=== PATIENT | male | born 1940 | race African-American/Black ===

== ENCOUNTER 2017-07-18 10:10 | Inpatient (IN) | payer OTHER ==
[2017-07-18 11:55] VITALS: BMI 21.5
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
[2017-07-18] MEDS ORDERED: MAGNESIUM HYDROX 2400MG/30ML ORAL SUSPENSION 30 ML CUP PO PRN (15:37)
[2017-07-18] MEDS ORDERED: MAG HYDROX/AL HYDROX/SIMETH 30 ML UNIT-DOSE CUP PO PRN (15:37)
[2017-07-18] MEDS ORDERED: MENTHOL/PHENOL 1 EACH UD MM PRN (15:37)
[2017-07-18] MEDS ORDERED: chlordiazePOXIDE HCL 25 MG CAPSULE PO PRN (15:37)
[2017-07-18] MEDS ORDERED: LOPERAMIDE HCL 2 MG CAPSULE PO PRN (15:37)
[2017-07-18] MEDS ORDERED: MAGNESIUM CITRATE 300 ML BOTTLE PO PRN (15:37)
[2017-07-18] MEDS ORDERED: P-EPHED 60MG/TRIPROLIDI 2.5MG TABLET PO PRN (15:37)
[2017-07-18] MEDS ORDERED: guaiFENesin/D-METHORPHAN HB 10 ML UNIT-DOSE CUPS PO PRN (15:37)
[2017-07-18] MEDS ORDERED: NICOTINE POLACRILEX 2 MG GUM BC PRN (15:37)
[2017-07-18] MEDS ORDERED: ALBUTEROL SO4 18 GM HFA INHALER IH PRN (15:40)
[2017-07-18] MEDS ORDERED: PHENYTOIN NA EXTENDED 100 MG CAPSULE (FP) PO SCH (15:45)
[2017-07-18] MEDS ORDERED: chlordiazePOXIDE HCL 25 MG CAPSULE PO ONE (16:00)
[2017-07-18] MEDS: chlordiazePOXIDE HCL 25 MG CAPSULE PO SCH ×2 (17:20→22:12)
[2017-07-18] MEDS: NICOTINE 21 MG/24 HOURS TOPICAL PATCH TD SCH (17:20)
[2017-07-18] MEDS: IBUPROFEN 400 MG TABLET (FP) PO PRN (19:50)
[2017-07-18] MEDS ORDERED: chlordiazePOXIDE HCL 25 MG CAPSULE ONE (21:20)
[2017-07-18] MEDS ORDERED: MELATONIN 5 MG TABLETS PO PRN (22:00)
[2017-07-18] MEDS: THIAMINE HCL 100 MG TABLET (FP) PO SCH (22:11)
[2017-07-18] MEDS: METHYL SALICYLATE/MENTHOL OINT 30 GM TUBE TP SCH (22:12)
[2017-07-19] MEDS: chlordiazePOXIDE HCL 25 MG CAPSULE PO SCH ×4 (05:47→22:13)
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
[2017-07-19] MEDS: PHENYTOIN NA EXTENDED 100 MG CAPSULE (FP) PO SCH (10:23)
[2017-07-19] MEDS: PRENATAL VITAMINS W/ FOLIC ACID TABLET (FP) PO SCH (10:23)
[2017-07-19] MEDS: METHYL SALICYLATE/MENTHOL OINT 30 GM TUBE TP SCH ×2 (10:24→22:14)
[2017-07-19] MEDS: NICOTINE 21 MG/24 HOURS TOPICAL PATCH TD SCH (10:24)
[2017-07-19 11:02] LABS: CHLORIDE 109 mmol/L (98-107); POTASSIUM 4.1 mmol/L (3.5-5.1); SODIUM 142 mmol/L (136-145)
[2017-07-19 12:01] LABS: ALK PHOS 89 U/L (45-117); ANION GAP 8 (8-16); BILIRUBIN,TOTAL 0.3 mg/dL (0.2-1.0); BLOOD UREA NITROGEN 15 mg/dL (7-18); CALCIUM 8.7 mg/dL (8.5-10.1); CO2 25 mmol/L (21-32); GLUCOSE,RANDOM 52 mg/dL (74-106); SGOT/AST 16 U/L (15-37); SGPT/ALT 22 U/L (12-78); TOT PROT 7.2 g/dl (6.4-8.2)
[2017-07-19] MEDS ORDERED: ONDANSETRON *ODT* 4 MG TABLET SL PRN (12:53)
--- NOTE | 2017-07-19 12:53 | PN ---
S CIWA - CIWA Score Nausea/Vomitin-Int. Nausea w/Dry Heave Muscle Tremors: 3 Anxiety: 4-Mod. Anxious/Guarded Agitation: 3 Paroxysmal Sweats: 1-Minimal Palms Moist Orientation: 0-Oriented Tacttile Disturbances: 0-None Auditory Disturbances: 0-None Visual Disturbances: 0-None Headache: 0-None Present CIWA-Ar Total Score: 15 BHS Progress Note (SOAP) Subjective: C/O ANXIETY,TREMORS,NAUSEA,IRRITABILITY,SWEATS,FATIGUE Objective: 07/19/17 12:52 Vital Signs 07/19/17 07/19/17 06:19 09:30 Temperature 96 F L 96.6 F L Pulse Rate 57 L 58 L Respiratory 16 16 Rate Blood Pressure 136/68 138/68 Laboratory Tests 07/19/17 07/19/17 07:30 07:30 Sodium 142 Potassium 4.1 Chloride 109 H Carbon Dioxide 25 Anion Gap 8 BUN 15 Creatinine 1.0 Creat Clearance w eGFR > 60 Random Glucose 52 L Calcium 8.7 Total Bilirubin 0.3 AST 16 ALT 22 Alkaline Phosphatase 89 Total Protein 7.2 Albumin 4.0 RPR Titer Nonreactive OTHER LABS PENDING Assessment: 07/19/17 12:53 WITHDRAWAL SX Plan: CONTINUE DETOX [facility]AN PRN
--- NOTE | 2017-07-19 14:00 | EKG ---
Test Reason : Blood Pressure : / mmHG Vent. Rate : 069 BPM Atrial Rate : 069 BPM P-R Int : 140 ms QRS Dur : 086 ms QT Int : 390 ms P-R-T Axes : 075 052 056 degrees QTc Int : 417 ms SINUS RHYTHM WITH PREMATURE ATRIAL COMPLEXES MODERATE VOLTAGE CRITERIA FOR LVH, MAY BE NORMAL VARIANT BORDERLINE ECG NO PREVIOUS ECGS AVAILABLE Confirmed by KEO EDWARDS, TE ([id number]) on 07/19/2017 1:59:44 PM Referred By: Confirmed By:TE CROWLEY MD
[2017-07-19] MEDS: ACETAMINOPHEN 325 MG TABLET (FP) PO PRN (17:39)
[2017-07-19] MEDS: THIAMINE HCL 100 MG TABLET (FP) PO SCH (22:13)
[2017-07-20] MEDS: chlordiazePOXIDE HCL 25 MG CAPSULE PO SCH (06:47)
[2017-07-20] MEDS ORDERED: diazePAM 5 MG TABLET PO PRN (09:47)
[2017-07-20 09:54] LABS: MEAN PLT VOLUME 9.3 fl (7.5-11.1)
[2017-07-20 09:57] LABS: HEMOGLOBIN 13.6 GM/dL (11.7-16.9); MCH 30.8 pg (25.7-33.7); MCHC 33.2 g/dl (32.0-35.9); MEAN CELL VOLUME 92.8 fl (80-96); PLATELET COUNT 233 K/MM3 (134-434); RBC 4.42 M/mm3 (4.00-5.60); RDW 13.8 % (11.9-15.9); WHITE BLOOD COUNT 7.6 K/mm3 (4.0-10.0)
[2017-07-20] MEDS ORDERED: diazePAM 5 MG TABLET PO SCH (10:00)
[2017-07-20] MEDS: PRENATAL VITAMINS W/ FOLIC ACID TABLET (FP) PO SCH (10:25)
[2017-07-20] MEDS: METHYL SALICYLATE/MENTHOL OINT 30 GM TUBE TP SCH ×2 (10:26→23:00)
[2017-07-20] MEDS: diazePAM 5 MG TABLET PO SCH ×2 (10:26→23:00)
[2017-07-20] MEDS: NICOTINE 21 MG/24 HOURS TOPICAL PATCH TD SCH (10:26)
[2017-07-20] MEDS: PHENYTOIN NA EXTENDED 100 MG CAPSULE (FP) PO SCH (10:26)
--- NOTE | 2017-07-20 11:45 | PN ---
S CIWA - CIWA Score Nausea/Vomitin-No Nausea/No Vomiting Muscle Tremors: 4-Moderate,w/Arms Extend Anxiety: 4-Mod. Anxious/Guarded Agitation: 4-Moderately Restless Paroxysmal Sweats: 1-Minimal Palms Moist Orientation: 0-Oriented Tacttile Disturbances: 0-None Auditory Disturbances: 0-None Visual Disturbances: 0-None Headache: 0-None Present CIWA-Ar Total Score: 13 BHS Progress Note (SOAP) Subjective: ANXIETY,SWEATS,TREMORS. PT IS OOB AMBULATING ON THE UNIT WITH NAD. PT C/O STOMACH UPSET WITH LIBRIUM DISPENSED.WILLING TO TAKE VALIUM INSTEAD. Objective: 07/20/17 11:44 Vital Signs Temperature 96.1 F L 07/20/17 09:26 Pulse Rate 77 07/20/17 09:26 Respiratory Rate 18 07/20/17 09:26 Blood Pressure 132/74 07/20/17 09:26 O2 Sat by Pulse Oximetry (%) Laboratory Tests 07/19/17 07/19/17 07/19/17 07:30 07:30 07:30 WBC RBC Hgb Hct MCV MCH MCHC RDW Plt Count MPV Sodium 142 Potassium 4.1 Chloride 109 H Carbon Dioxide 25 Anion Gap 8 BUN 15 Creatinine 1.0 Creat Clearance w eGFR > 60 Random Glucose 52 L Calcium 8.7 Total Bilirubin 0.3 AST 16 ALT 22 Alkaline Phosphatase 89 Total Protein 7.2 Albumin 4.0 Phenytoin < 2.5 L RPR Titer Nonreactive 07/20/17 07:00 WBC 7.6 RBC 4.42 Hgb 13.6 Hct 41.0 MCV 92.8 MCH 30.8 MCHC 33.2 RDW 13.8 Plt Count 233 MPV 9.3 Sodium Potassium Chloride Carbon Dioxide Anion Gap BUN Creatinine Creat Clearance w eGFR Random Glucose Calcium Total Bilirubin AST ALT Alkaline Phosphatase Total Protein Albumin Phenytoin RPR Titer Assessment: 07/20/17 11:44 WITHDRAWAL SX Plan: CONTINUE DETOX D/C LIBRIUM OREDERED VALIUM DETOX PROTOCOL INCREASE OPO FLUIDS
[2017-07-20 12:35] LABS: SICKLE CELL SCREEN NEGATIVE (NEGATIVE)
[2017-07-20] MEDS ORDERED: chlordiazePOXIDE 5 MG CAPSULE PO SCH (17:00)
[2017-07-20] MEDS: THIAMINE HCL 100 MG TABLET (FP) PO SCH (23:00)
[2017-07-21] MEDS: PHENYTOIN NA EXTENDED 100 MG CAPSULE (FP) PO SCH (07:48)
[2017-07-21] MEDS: PRENATAL VITAMINS W/ FOLIC ACID TABLET (FP) PO SCH (10:35)
[2017-07-21] MEDS: diazePAM 5 MG TABLET PO SCH ×2 (10:35→22:11)
[2017-07-21] MEDS: METHYL SALICYLATE/MENTHOL OINT 30 GM TUBE TP SCH ×2 (10:35→22:11)
[2017-07-21] MEDS: NICOTINE 21 MG/24 HOURS TOPICAL PATCH TD SCH (10:35)
--- NOTE | 2017-07-21 11:50 | PN ---
[facility] Progress Note (SOAP) Subjective: PT C/O CHRONIC NECK PAIN ON ROUNDS OF WHICH HE APPLIES ALONSO-MARTI AND REPORTS SOME RELIEF. ALERT O X 3. OOB AMBULATING ON UNIT. Objective: 07/21/17 11:49 Vital Signs 07/21/17 07/21/17 06:21 10:00 Temperature 96.7 F L 96.0 F L Pulse Rate 62 83 Respiratory 18 18 Rate Blood Pressure 136/70 97/60 Laboratory Last Values WBC 7.6 K/mm3 (4.0-10.0) 07/20/17 07:00 RBC 4.42 M/mm3 (4.00-5.60) 07/20/17 07:00 Hgb 13.6 GM/dL (11.7-16.9) 07/20/17 07:00 Hct 41.0 % (35.4-49) 07/20/17 07:00 MCV 92.8 fl (80-96) 07/20/17 07:00 MCH 30.8 pg (25.7-33.7) 07/20/17 07:00 MCHC 33.2 g/dl (32.0-35.9) 07/20/17 07:00 RDW 13.8 % (11.9-15.9) 07/20/17 07:00 Plt Count 233 K/MM3 (134-434) 07/20/17 07:00 MPV 9.3 fl (7.5-11.1) 07/20/17 07:00 Sickle Cell Screen Negative (NEGATIVE) 07/20/17 07:00 Sodium 142 mmol/L (136-145) 07/19/17 07:30 Potassium 4.1 mmol/L (3.5-5.1) 07/19/17 07:30 Chloride 109 mmol/L (98-107) H 07/19/17 07:30 Carbon Dioxide 25 mmol/L (21-32) 07/19/17 07:30 Anion Gap 8 (8-16) 07/19/17 07:30 BUN 15 mg/dL (7-18) 07/19/17 07:30 Creatinine 1.0 mg/dL (0.7-1.3) 07/19/17 07:30 Creat Clearance w eGFR > 60 (>60) 07/19/17 07:30 Random Glucose 52 mg/dL (74-106) L 07/19/17 07:30 Calcium 8.7 mg/dL (8.5-10.1) 07/19/17 07:30 Total Bilirubin 0.3 mg/dL (0.2-1.0) 07/19/17 07:30 AST 16 U/L (15-37) 07/19/17 07:30 ALT 22 U/L (12-78) 07/19/17 07:30 Alkaline Phosphatase 89 U/L (45-117) 07/19/17 07:30 Total Protein 7.2 g/dl (6.4-8.2) 07/19/17 07:30 Albumin 4.0 g/dl (3.4-5.0) 07/19/17 07:30 Phenytoin < 2.5 ug/ml (10.0-20.0) L 07/19/17 07:30 RPR Titer Nonreactive (NONREACTIVE) 07/19/17 07:30 Assessment: 07/21/17 11:50 WITHDRAWAL SX Plan: CONTINUE DETOX.
--- NOTE | 2017-07-21 11:59 | PN ---
S Progress Note Note: BUILDING MAINTENANCE REPAIRER WAS CALLED TO SEE PATIENT AGAIN FOR C/O ABDOMINAL PAIN. PT REPORTS LEFT INGUINAL AREA PAIN. REPORTS HX OF LEFT INGUINAL HERNIA AND ON/OFF PAIN BUT SAYS THIS IS SEVERE AND FEELS THERE IS SOMETHING IN THERE. PT HAS A HX OF RIGHT INGUINAL HERNIA REPAIR. PT ALSO HAS A HX OF HTN,ASTHMA,SEIZURE DISORDER,GERD. CURRENTLY DETOXING FROM ALCOHOL AND ON VALIUM REGIMEN. ALERT O X 3. ABDOMEN: SOFT WITH LEFT INGUINAL BULGE, PARTIAL REDUCIBILITY WITH PAIN ON PALPATION. BS+ PLAN:TRANSFER TO [facility] ER FOR EVALUATION AND TREATMENT VIA AMBULANCE. PT MAY RETURN TO COMPLETE DETOX IF MEDICALLY CLEARED AND STABLE. SPOKE TO ARTHUR BAILEY AT THE ER.
[2017-07-21] MEDS ORDERED: chlordiazePOXIDE HCL 10 MG CAPSULE PO SCH (17:00)
[2017-07-21] MEDS: THIAMINE HCL 100 MG TABLET (FP) PO SCH (22:11)
[2017-07-22] MEDS: PRENATAL VITAMINS W/ FOLIC ACID TABLET (FP) PO SCH (09:58)
[2017-07-22] MEDS: NICOTINE 21 MG/24 HOURS TOPICAL PATCH TD SCH (09:59)
[2017-07-22] MEDS: PHENYTOIN NA EXTENDED 100 MG CAPSULE (FP) PO SCH (09:59)
[2017-07-22] MEDS: METHYL SALICYLATE/MENTHOL OINT 30 GM TUBE TP SCH ×2 (09:59→22:19)
[2017-07-22] MEDS ORDERED: diazePAM 5 MG TABLET PO SCH (10:00)
--- NOTE | 2017-07-22 12:57 | PN ---
[facility] Progress Note Note: Patient returns from CXR at [facility] which was normal. Patient alert returned to floor.
--- NOTE | 2017-07-22 17:11 | PN ---
[facility] Progress Note (SOAP) Subjective: Anxious, Body Aches, Sweating. Patient reports that he "coughed up blood" X 1 last night in his room. Patient denies any other episodes of hemoptysis since that time. Objective: PATIENT A & O X 3, OBSERVED AMBULATING ON UNIT. NO ACUTE DISTRESS. LUNG SOUNDS AUSCULTATED CLEAR AND EQUAL BILATERALLY. PATIENT DENIES ANY KNOWN HISTORY OF RESPIRATORY DISEASE. 07/22/17 17:12 Vital Signs Temperature 96.2 F L 07/22/17 15:02 Pulse Rate 64 07/22/17 15:02 Respiratory Rate 18 07/22/17 15:02 Blood Pressure 170/78 07/22/17 15:02 O2 Sat by Pulse Oximetry (%) Laboratory Tests 07/19/17 07/19/17 07/19/17 07:30 07:30 07:30 WBC RBC Hgb Hct MCV MCH MCHC RDW Plt Count MPV Sickle Cell Screen Sodium 142 Potassium 4.1 Chloride 109 H Carbon Dioxide 25 Anion Gap 8 BUN 15 Creatinine 1.0 Creat Clearance w eGFR > 60 Random Glucose 52 L Calcium 8.7 Total Bilirubin 0.3 AST 16 ALT 22 Alkaline Phosphatase 89 Total Protein 7.2 Albumin 4.0 Phenytoin < 2.5 L RPR Titer Nonreactive 07/20/17 07:00 WBC 7.6 RBC 4.42 Hgb 13.6 Hct 41.0 MCV 92.8 MCH 30.8 MCHC 33.2 RDW 13.8 Plt Count 233 MPV 9.3 Sickle Cell Screen Negative Sodium Potassium Chloride Carbon Dioxide Anion Gap BUN Creatinine Creat Clearance w eGFR Random Glucose Calcium Total Bilirubin AST ALT Alkaline Phosphatase Total Protein Albumin Phenytoin RPR Titer LABS NOTED. 07/22/17 17:13 Assessment: 07/22/17 17:12 WITHDRAWAL SYMPTOMS. Plan: CONTINUE DETOX. CXR ORDERED AND DONE - RESULTS NOTED. PATIENT ADVISED TO IMMEDIATELY NOTIFY MEDICAL STAFF SHOULD HE EXPERIENCE ANY FURTHER EPISODES OF HEMOPTYSIS. PATIENT ADVISED TO FOLLOW-UP WITH TEST DEVELOPMENT ENGINEER AT [facility] ([facility] [place] AFTER DISCHARGE FROM DETOX FOR FURTHER EVALUATION FOR THIS MATTER.
[2017-07-22] MEDS: IBUPROFEN 400 MG TABLET (FP) PO PRN (19:54)
[2017-07-22 21:55] VITALS: PULSE 72
[2017-07-22] MEDS: THIAMINE HCL 100 MG TABLET (FP) PO SCH (22:19)
[2017-07-23 06:25] VITALS: BP 131/78; TEMP 96.1
[2017-07-23] MEDS: ACETAMINOPHEN 325 MG TABLET (FP) PO PRN (07:15)
[2017-07-23] MEDS: PHENYTOIN NA EXTENDED 100 MG CAPSULE (FP) PO SCH (07:26)
[2017-07-23 10:14] LABS: URINE APPEARANCE CLEAR; URINE BILIRUBIN NEGATIVE (<2.0 mg/dL); URINE COLOR LTYELLOW; URINE GLUCOSE (UA) NEGATIVE (NEGATIVE); URINE KETONE NEGATIVE (NEGATIVE); URINE LEUK ESTERASE NEGATIVE (NEGATIVE); URINE NITRITE NEGATIVE (NEGATIVE); URINE PROTEIN NEGATIVE (NEGATIVE); URINE UROBILINOGEN NEGATIVE mg/dL (0.2-1.0)
--- NOTE | 2017-07-23 15:41 | PN ---
[facility] Progress Note (SOAP) Subjective: DETOX COMPLETED. ALERT O X 3. NAD. DENIES ANY DISCOMFORT. Objective: 07/23/17 15:38 Vital Signs - 24 hr 07/22/17 07/22/17 07/23/17 17:25 21:55 00:30 Temperature 96.9 F L 96.6 F L Pulse Rate 73 72 Respiratory 16 18 16 Rate Blood Pressure 134/71 146/64 07/23/17 06:24 Temperature 96.1 F L Pulse Rate 72 Respiratory 16 Rate Blood Pressure 131/78 Laboratory Tests 07/19/17 07/19/17 07/19/17 07:30 07:30 07:30 WBC RBC Hgb Hct MCV MCH MCHC RDW Plt Count MPV Sickle Cell Screen Sodium 142 Potassium 4.1 Chloride 109 H Carbon Dioxide 25 Anion Gap 8 BUN 15 Creatinine 1.0 Creat Clearance w eGFR > 60 Random Glucose 52 L Calcium 8.7 Total Bilirubin 0.3 AST 16 ALT 22 Alkaline Phosphatase 89 Total Protein 7.2 Albumin 4.0 Urine Color Urine Appearance Urine pH Ur Specific [place] Urine Protein Urine Glucose (UA) Urine Ketones Urine Blood Urine Nitrite Urine Bilirubin Urine Urobilinogen Ur Leukocyte Esterase Phenytoin < 2.5 L RPR Titer Nonreactive 07/20/17 07/23/17 07:00 09:14 WBC 7.6 RBC 4.42 Hgb 13.6 Hct 41.0 MCV 92.8 MCH 30.8 MCHC 33.2 RDW 13.8 Plt Count 233 MPV 9.3 Sickle Cell Screen Negative Sodium Potassium Chloride Carbon Dioxide Anion Gap BUN Creatinine Creat Clearance w eGFR Random Glucose Calcium Total Bilirubin AST ALT Alkaline Phosphatase Total Protein Albumin Urine Color Ltyellow Urine Appearance Clear Urine pH 5.0 Ur Specific [place] 1.014 Urine Protein Negative Urine Glucose (UA) Negative Urine Ketones Negative Urine Blood Negative Urine Nitrite Negative Urine Bilirubin Negative Urine Urobilinogen Negative Ur Leukocyte Esterase Negative Phenytoin RPR Titer Assessment: 07/23/17 15:38 MEDICALLY STABLE Plan: D/C PT TODAY. PT REMINDED TO FOLLOW UP WITH PMD/SURGERY RE: LEFT INGUINAL HERNIA. ALL ER PAPERS/RECOMMENDATIONS GIVEN TO PT BY NURSE ON DISCHARGE.
--- NOTE | 2017-07-23 15:46 | DS ---
[facility] Detox Discharge Summary Admission Date: 07/18/17 Discharge Date: 07/23/17 - History Present History: Alcohol Dependence, Cocaine Dependence Additional Comments: DETOX COMPLETED. ALERT O X 3. PT WILL FOLLOW UP WITH HIS PCP AT [facility]. REMINDED PT TO FOLLOW UP WITH ER RECOMMENDATION RE: LEFT INGUINAL HERNIA REPAIR. Pertinent Past History: PLEASE SEE DX BELOW - Physical Exam Results Vital Signs: Vital Signs Temperature 96.1 F L 07/23/17 06:24 Pulse Rate 72 07/23/17 06:24 Respiratory Rate 16 07/23/17 06:24 Blood Pressure 131/78 07/23/17 06:24 O2 Sat by Pulse Oximetry (%) Pertinent Admission Physical Exam Findings: WITHDRAWAL SX Vital Signs - 24 hr 07/22/17 07/22/17 07/23/17 17:25 21:55 00:30 Temperature 96.9 F L 96.6 F L Pulse Rate 73 72 Respiratory 16 18 16 Rate Blood Pressure 134/71 146/64 07/23/17 06:24 Temperature 96.1 F L Pulse Rate 72 Respiratory 16 Rate Blood Pressure 131/78 Laboratory Tests 07/19/17 07/19/17 07/19/17 07:30 07:30 07:30 WBC RBC Hgb Hct MCV MCH MCHC RDW Plt Count MPV Sickle Cell Screen Sodium 142 Potassium 4.1 Chloride 109 H Carbon Dioxide 25 Anion Gap 8 BUN 15 Creatinine 1.0 Creat Clearance w eGFR > 60 Random Glucose 52 L Calcium 8.7 Total Bilirubin 0.3 AST 16 ALT 22 Alkaline Phosphatase 89 Total Protein 7.2 Albumin 4.0 Urine Color Urine Appearance Urine pH Ur Specific [place] Urine Protein Urine Glucose (UA) Urine Ketones Urine Blood Urine Nitrite Urine Bilirubin Urine Urobilinogen Ur Leukocyte Esterase Phenytoin < 2.5 L RPR Titer Nonreactive 07/20/17 07/23/17 07:00 09:14 WBC 7.6 RBC 4.42 Hgb 13.6 Hct 41.0 MCV 92.8 MCH 30.8 MCHC 33.2 RDW 13.8 Plt Count 233 MPV 9.3 Sickle Cell Screen Negative Sodium Potassium Chloride Carbon Dioxide Anion Gap BUN Creatinine Creat Clearance w eGFR Random Glucose Calcium Total Bilirubin AST ALT Alkaline Phosphatase Total Protein Albumin Urine Color Ltyellow Urine Appearance Clear Urine pH 5.0 Ur Specific [place] 1.014 Urine Protein Negative Urine Glucose (UA) Negative Urine Ketones Negative Urine Blood Negative Urine Nitrite Negative Urine Bilirubin Negative Urine Urobilinogen Negative Ur Leukocyte Esterase Negative Phenytoin RPR Titer - Treatment Hospital Course: Detox Protocol Followed, Detoxed Safely, Responded well, Discharged Condition Good - Medication Discharge Medications: Ambulatory Orders Albuterol Sulfate Inhaler - [Ventolin HFA Inhaler -] 2 puff IH Q4H PRN 07/18/17 Phenytoin Na Extended [Dilantin -] 100 mg PO DAILY 07/18/17 - Diagnosis (1) Alcohol dependence with uncomplicated withdrawal Status: Acute (2) Cocaine dependence, uncomplicated Status: Acute (3) Acid reflux Status: Chronic Qualifiers: Esophagitis presence: esophagitis presence not specified Qualified Code(s) : K21.9 - Gastro-esophageal reflux disease without esophagitis (4) Asthma Status: Chronic Qualifiers: Asthma severity: mild Asthma persistence: intermittent Asthma complication type: uncomplicated Qualified Code(s): J45.20 - Mild intermittent asthma, uncomplicated (5) Nicotine dependence Status: Chronic Qualifiers: Nicotine product type: cigarettes Substance use status: in withdrawal Qualified Code(s): F17.213 - Nicotine dependence, cigarettes, with withdrawal (6) Seizure disorder Status: Suspected (7) History of hypertension Status: Chronic - AMA Did Patient Leave Against Medical Advice: No
== END 2017-07-23 09:48 | disposition home or self-care (01) | DRG 897 ==
LOC: YASAS 10:10 → Y3N 14:54
PROVIDERS: ADMIT Internal Medicine; ATTEND Internal Medicine
PROC: HZ2ZZZZ Detoxification Services for Substance Abuse Treatment (ICD-10-PCS; principal; 2017-07-18)
DX: F10.230 Alcohol dependence with withdrawal, uncomplicated (principal); F14.20 Cocaine dependence, uncomplicated; F17.213 Nicotine dependence, cigarettes, with withdrawal; F32.9 Major depressive disorder, single episode, unspecified; J45.20 Mild intermittent asthma, uncomplicated; I10 Essential (primary) hypertension; K21.9 Gastro-esophageal reflux disease without esophagitis; G40.909 Epilepsy, unspecified, not intractable, without status epilepticus
CPT/HCPCS: 36415; 71046-TC-FY; 80053; 80185; 81003; 85027; 85660; 86593; 93005; 93010

== ENCOUNTER 2017-07-21 13:07 | Emergency (ER) | payer SELFPAY ==
--- NOTE | 2017-07-21 13:25 | PDOC ---
Attending Attestation - HPI HPI: 07/21/17 14:15 The patient is a 77 year old male, with a significant PMH of polysubstance abuse (cocaine, alcohol, opiates), who presents to the emergency department sent in by [facility] with hernia pain. The patient states he has an existing hernia but reports that the hernia pain has been bothering him more recently. He denies any recent injuries or trauma. The patient states the hernia pain is exacerbated with movement and alleviated with rest. He denies any fever or chills. He denies any nausea, vomiting, constipation or diarrhea. The patient denies chest pain, shortness of breath, headache and dizziness. Denies dysuria, frequency, urgency and hematuria. Allergies: Penicillins - Physicial Exam PE: 07/21/17 14:16 Vitals: Triage vital signs reviewed General Appearance: No acute distress, well nourished, well developed Head: Atraumatic Eyes: Pupils equal reactive round, extraocular movement intact Ears: TM's normal bilaterally Nose: Nares patent bilaterally; no nasal congestion Throat: Posterior oropharynx without erythema, mucous membranes moist Neck: Supple; No nuchal rigidity Chest Wall: Nontender Cardiac: Regular rate and rhythm, no murmurs, no rubs, no gallops Lungs: Clear to auscultation bilateral, good air movement bilaterally Abdomen: (+) Reducible left inguinal hernia. Soft, nondistended, normal bowel sounds, nontender to palpation. Rectal: Exam deferred Extremities: Full range of motion to all extremities, no cyanosis, clubbing, or edema Skin: Warm and dry, no rashes or lesions, no rash, no petechiae Neuro: AOX3; Cranial Nerves 2-12 grossly intact, Strength intact to all extremities, Sensation intact to all extremities. Psych: Normal mood, normal affect - Medical Decision Making 07/21/17 14:16 The patient is a 77 year old male, with a significant PMH of polysubstance abuse (alcohol, cocaine, opiates), who presents to the emergency department sent in by [facility] with hernia pain. Plan: Labs, Meds Documentation prepared by Ajay Bowers, acting as medical records assistant for Leif Ayala MD. <jAay Bwoers - Last Filed: 07/21/17 14:15> - Resident Resident Name: Beto Lopes - ED Attending Attestation I have performed the following: I have examined & evaluated the patient, The case was reviewed & discussed with the resident, I agree w/resident's findings & plan, Exceptions are as noted - Medical Decision Making Patient with reducible left inguinal hernia. No signs of incarceration. Labs lactic all within normal limits Findings, need for follow-up and surgical follow-up discussed with patient. <Leif Ayala - Last Filed: 07/21/17 19:33>
[2017-07-21] MEDS ORDERED: KETOROLAC TROMETHAMINE 60 MG/2 ML VIAL IM ONE (13:27)
[2017-07-21 13:36] VITALS: BMI 21.5
[2017-07-21] MEDS ORDERED: KETOROLAC TROMETHAMINE 60 MG/2 ML VIAL ONE (13:50)
[2017-07-21 14:07] LABS: BASO % 0.9 % (0-2.0); EOS % 3.2 % (0-4.5); HEMATOCRIT 37.8 % (35.4-49); HEMOGLOBIN 13.1 GM/dL (11.7-16.9); MCH 31.7 pg (25.7-33.7); MCHC 34.7 g/dl (32.0-35.9); MEAN CELL VOLUME 91.4 fl (80-96); MEAN PLT VOLUME 8.9 fl (7.5-11.1); MONO % 9.1 % (3.8-10.2); NEUT % 64.8 % (42.8-82.8); PLATELET COUNT 217 K/MM3 (134-434); RBC 4.13 M/mm3 (4.00-5.60); RDW 13.9 % (11.9-15.9); WHITE BLOOD COUNT 7.2 K/mm3 (4.0-10.0)
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
[2017-07-21 14:50] LABS: ALBUMIN 3.8 g/dl (3.4-5.0); ANION GAP 5 (8-16); BILIRUBIN,TOTAL 0.1 mg/dL (0.2-1.0); BLOOD UREA NITROGEN 15 mg/dL (7-18); CALCIUM 9.3 mg/dL (8.5-10.1); CHLORIDE 103 mmol/L (98-107); CO2 31 mmol/L (21-32); CREATININE 1.1 mg/dL (0.7-1.3); GLUCOSE,RANDOM 65 mg/dL (74-106); POTASSIUM 4.5 mmol/L (3.5-5.1); SGOT/AST 15 U/L (15-37); SGPT/ALT 23 U/L (12-78); SODIUM 139 mmol/L (136-145)
[2017-07-21 14:51] LABS: ALK PHOS 84 U/L (45-117)
[2017-07-21 15:27] VITALS: TEMP 98.2
[2017-07-21 16:38] VITALS: BP 133/72; PULSE 75
== END 2017-07-21 16:49 | disposition home or self-care (01) ==
LOC: JER 13:07
PROC: 3E0233Z Introduction of Anti-inflammatory into Muscle, Percutaneous Approach (ICD-10-PCS; principal; 2017-07-21)
DX: K40.91 Unilateral inguinal hernia, without obstruction or gangrene, recurrent (principal); J45.909 Unspecified asthma, uncomplicated; G40.909 Epilepsy, unspecified, not intractable, without status epilepticus; F17.210 Nicotine dependence, cigarettes, uncomplicated; F10.10 Alcohol abuse, uncomplicated; F11.10 Opioid abuse, uncomplicated; F14.10 Cocaine abuse, uncomplicated
CPT/HCPCS: 36415; 80053; 83605; 85025; 99283-25

== ENCOUNTER 2017-08-08 08:46 | Inpatient (IN) | payer OTHER ==
[2017-08-08 10:02] VITALS: BMI 20.2
--- NOTE | 2017-08-08 12:51 | HP ---
[facility] Rehab Assess/Revision - Admission History Admitted to Rehab from: [facility] Date of Admission to Rehab: 08/08/17 - Vital signs Vital Signs: Vital Signs Period Temp Pulse Resp BP Sys/Zhang Pulse Ox Last 24 Hr 96 F 84 20 136/63 - Findings Detox History & Physical reviewed: Yes Concur with findings: Yes Comments/Additional Findings: completed alcohol detox 07/23 return to [facility] for alcohol rehab, has asthma weight loss cigarettes smoking and depression Inpatient Rehab Admission - Rehab Admission Criteria Previous failed treatment: Yes Poor recovery environment: Yes Comorbidities: Yes Lacks judgement: No Patient is meeting Inpatient Rehab admission criteria:: Yes
[2017-08-08] MEDS ORDERED: MENTHOL/PHENOL 1 EACH UD MM PRN (12:55)
[2017-08-08] MEDS ORDERED: P-EPHED 60MG/TRIPROLIDI 2.5MG TABLET PO PRN (12:55)
[2017-08-08] MEDS ORDERED: ACETAMINOPHEN 325 MG TABLET (FP) PO PRN (12:55)
[2017-08-08] MEDS ORDERED: guaiFENesin/D-METHORPHAN HB 10 ML UNIT-DOSE CUPS PO PRN (12:55)
[2017-08-08] MEDS ORDERED: LOPERAMIDE HCL 2 MG CAPSULE PO PRN (12:55)
[2017-08-08] MEDS ORDERED: MAGNESIUM HYDROX 2400MG/30ML ORAL SUSPENSION 30 ML CUP PO PRN (12:55)
[2017-08-08] MEDS ORDERED: NICOTINE POLACRILEX 2 MG GUM BUC PRN (12:55)
[2017-08-08] MEDS ORDERED: ALBUTEROL SO4 18 GM HFA INHALER IH PRN (12:55)
[2017-08-08] MEDS ORDERED: MAGNESIUM CITRATE 300 ML BOTTLE PO PRN (12:55)
[2017-08-08] MEDS ORDERED: MAG HYDROX/AL HYDROX/SIMETH 30 ML UNIT-DOSE CUP PO PRN (12:55)
[2017-08-08] MEDS: PHENYTOIN NA EXTENDED 100 MG CAPSULE (FP) PO SCH (16:06)
[2017-08-08] MEDS: THIAMINE HCL 100 MG TABLET (FP) PO SCH (21:52)
[2017-08-09] MEDS: PRENATAL VITAMINS W/ FOLIC ACID TABLET (FP) PO SCH (10:38)
[2017-08-09] MEDS: PHENYTOIN NA EXTENDED 100 MG CAPSULE (FP) PO SCH ×2 (10:38→21:46)
[2017-08-09] MEDS: NICOTINE 14 MG/24 HOURS TOPICAL PATCH TD SCH (10:38)
[2017-08-09 10:45] LABS: HEMATOCRIT 38.9 % (35.4-49); MCH 31.1 pg (25.7-33.7); MCHC 33.4 g/dl (32.0-35.9); MEAN CELL VOLUME 93.1 fl (80-96); PLATELET COUNT 302 K/MM3 (134-434); RBC 4.17 M/mm3 (4.00-5.60); RDW 13.7 % (11.9-15.9); WHITE BLOOD COUNT 6.9 K/mm3 (4.0-10.0)
[2017-08-09 10:57] LABS: CHLORIDE 104 mmol/L (98-107); POTASSIUM 5.2 mmol/L (3.5-5.1); SODIUM 140 mmol/L (136-145)
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
[2017-08-09 11:48] LABS: ALBUMIN 4.2 g/dl (3.4-5.0); ALK PHOS 88 U/L (45-117); ANION GAP 8 (8-16); BILIRUBIN,TOTAL 0.5 mg/dL (0.2-1.0); BLOOD UREA NITROGEN 19 mg/dL (7-18); CALCIUM 9.2 mg/dL (8.5-10.1); CO2 28 mmol/L (21-32); CREATININE 1.6 mg/dL (0.7-1.3); GLUCOSE,RANDOM 123 mg/dL (74-106); SGOT/AST 29 U/L (15-37); TOT PROT 7.5 g/dl (6.4-8.2)
[2017-08-09 12:06] LABS: SGPT/ALT 41 U/L (12-78)
--- NOTE | 2017-08-09 14:41 | PN ---
S Progress Note Note: PATIENTS DILANTIN LEVEL 2.5. PATIENTS HISTORY AND PHYSICAL SHOWS HISTORY OF SEIZURE DISORDER AND TREATMENT WITH DILANTIN 100MG DAILY. WILL INCREASE DILANTIN TO 100MG BID AND REPEAT LEVEL ON 08/11/17.
[2017-08-09] MEDS: IBUPROFEN 400 MG TABLET (FP) PO PRN (18:18)
[2017-08-09] MEDS: MELATONIN 5 MG TABLETS PO PRN (21:46)
[2017-08-09] MEDS: THIAMINE HCL 100 MG TABLET (FP) PO SCH (21:46)
[2017-08-10] MEDS: PRENATAL VITAMINS W/ FOLIC ACID TABLET (FP) PO SCH (10:15)
[2017-08-10] MEDS: PHENYTOIN NA EXTENDED 100 MG CAPSULE (FP) PO SCH ×2 (10:15→21:49)
[2017-08-10] MEDS: NICOTINE 14 MG/24 HOURS TOPICAL PATCH TD SCH (10:16)
[2017-08-10 14:03] LABS: CHLORIDE 105 mmol/L (98-107); POTASSIUM 4.5 mmol/L (3.5-5.1); SODIUM 141 mmol/L (136-145)
[2017-08-10 14:15] LABS: ALK PHOS 79 U/L (45-117); ANION GAP 4 (8-16); BILIRUBIN,TOTAL 0.4 mg/dL (0.2-1.0); BLOOD UREA NITROGEN 22 mg/dL (7-18); CO2 32 mmol/L (21-32); CREATININE 1.3 mg/dL (0.7-1.3); GLUCOSE,RANDOM 62 mg/dL (74-106); SGOT/AST 18 U/L (15-37); SGPT/ALT 33 U/L (12-78)
[2017-08-10] MEDS: MELATONIN 5 MG TABLETS PO PRN (21:49)
[2017-08-10] MEDS: THIAMINE HCL 100 MG TABLET (FP) PO SCH (21:49)
[2017-08-10] MEDS: IBUPROFEN 400 MG TABLET (FP) PO PRN (21:50)
[2017-08-11] MEDS: PRENATAL VITAMINS W/ FOLIC ACID TABLET (FP) PO SCH (10:07)
[2017-08-11] MEDS: PHENYTOIN NA EXTENDED 100 MG CAPSULE (FP) PO SCH ×2 (10:07→21:29)
[2017-08-11] MEDS: NICOTINE 14 MG/24 HOURS TOPICAL PATCH TD SCH (10:08)
[2017-08-11] MEDS: THIAMINE HCL 100 MG TABLET (FP) PO SCH (21:28)
[2017-08-11] MEDS: IBUPROFEN 400 MG TABLET (FP) PO PRN (21:29)
[2017-08-11] MEDS: MELATONIN 5 MG TABLETS PO PRN (21:30)
[2017-08-12] MEDS: PRENATAL VITAMINS W/ FOLIC ACID TABLET (FP) PO SCH (10:36)
[2017-08-12] MEDS: PHENYTOIN NA EXTENDED 100 MG CAPSULE (FP) PO SCH ×2 (10:36→21:39)
[2017-08-12] MEDS: NICOTINE 14 MG/24 HOURS TOPICAL PATCH TD SCH (10:36)
[2017-08-12] MEDS: IBUPROFEN 400 MG TABLET (FP) PO PRN ×2 (10:37→21:39)
[2017-08-12] MEDS: THIAMINE HCL 100 MG TABLET (FP) PO SCH (21:39)
[2017-08-13] MEDS: PHENYTOIN NA EXTENDED 100 MG CAPSULE (FP) PO SCH ×2 (10:21→21:48)
[2017-08-13] MEDS: PRENATAL VITAMINS W/ FOLIC ACID TABLET (FP) PO SCH (10:21)
[2017-08-13] MEDS: NICOTINE 14 MG/24 HOURS TOPICAL PATCH TD SCH (10:22)
[2017-08-13] MEDS: IBUPROFEN 400 MG TABLET (FP) PO PRN ×2 (10:23→21:49)
[2017-08-13] MEDS: THIAMINE HCL 100 MG TABLET (FP) PO SCH (21:48)
[2017-08-14] MEDS: PHENYTOIN NA EXTENDED 100 MG CAPSULE (FP) PO SCH ×2 (10:08→21:45)
[2017-08-14] MEDS: PRENATAL VITAMINS W/ FOLIC ACID TABLET (FP) PO SCH (10:08)
[2017-08-14] MEDS: NICOTINE 14 MG/24 HOURS TOPICAL PATCH TD SCH (10:08)
[2017-08-14] MEDS: IBUPROFEN 400 MG TABLET (FP) PO PRN ×2 (10:09→21:46)
[2017-08-14] MEDS: THIAMINE HCL 100 MG TABLET (FP) PO SCH (21:45)
[2017-08-15] MEDS: PRENATAL VITAMINS W/ FOLIC ACID TABLET (FP) PO SCH (10:11)
[2017-08-15] MEDS: NICOTINE 14 MG/24 HOURS TOPICAL PATCH TD SCH (10:11)
[2017-08-15] MEDS: PHENYTOIN NA EXTENDED 100 MG CAPSULE (FP) PO SCH ×2 (10:11→21:35)
[2017-08-15] MEDS: IBUPROFEN 400 MG TABLET (FP) PO PRN (10:12)
--- NOTE | 2017-08-15 16:55 | PN ---
[facility] Progress Note Note: Patient c/o neck pain. As per patient this has been a chronic issue and was dx with arthritis of the neck. Patient denies vertigo, vision changes, neck stiffness, changes in LOC, or paresthesia. Vital Signs Temperature 97.7 F 08/15/17 06:58 Pulse Rate 73 08/15/17 06:58 Respiratory Rate 18 08/15/17 06:58 Blood Pressure 139/65 08/15/17 06:58 O2 Sat by Pulse Oximetry (%) Laboratory Last Values WBC 6.9 K/mm3 (4.0-10.0) 08/09/17 05:55 RBC 4.17 M/mm3 (4.00-5.60) 08/09/17 05:55 Hgb 13.0 GM/dL (11.7-16.9) 08/09/17 05:55 Hct 38.9 % (35.4-49) 08/09/17 05:55 MCV 93.1 fl (80-96) 08/09/17 05:55 MCH 31.1 pg (25.7-33.7) 08/09/17 05:55 MCHC 33.4 g/dl (32.0-35.9) 08/09/17 05:55 RDW 13.7 % (11.9-15.9) 08/09/17 05:55 Plt Count 302 K/MM3 (134-434) D 08/09/17 05:55 MPV 10.0 fl (7.5-11.1) D 08/09/17 05:55 Sodium 141 mmol/L (136-145) 08/10/17 08:30 Potassium 4.5 mmol/L (3.5-5.1) 08/10/17 08:30 Chloride 105 mmol/L (98-107) 08/10/17 08:30 Carbon Dioxide 32 mmol/L (21-32) 08/10/17 08:30 Anion Gap 4 (8-16) L 08/10/17 08:30 BUN 22 mg/dL (7-18) H 08/10/17 08:30 Creatinine 1.3 mg/dL (0.7-1.3) 08/10/17 08:30 Creat Clearance w eGFR 53.82 (>60) 08/10/17 08:30 Random Glucose 62 mg/dL (74-106) L D 08/10/17 08:30 Calcium 9.0 mg/dL (8.5-10.1) 08/10/17 08:30 Total Bilirubin 0.4 mg/dL (0.2-1.0) 08/10/17 08:30 AST 18 U/L (15-37) D 08/10/17 08:30 ALT 33 U/L (12-78) 08/10/17 08:30 Alkaline Phosphatase 79 U/L (45-117) 08/10/17 08:30 Total Protein 7.0 g/dl (6.4-8.2) 08/10/17 08:30 Albumin 4.0 g/dl (3.4-5.0) 08/10/17 08:30 Phenytoin 5.3 ug/ml (10.0-20.0) L D 08/11/17 08:45 RPR Titer Nonreactive (NONREACTIVE) 08/09/17 05:55 A/P Patient AOx3, in no apparent distress PERRL + neck pain with movement no adventitious breath sounds s1, s2, no jvd skin intact, no lesions, edema or erythema FULL ROM on all extremities, ambulating in the unit - neck pain plan: continue ibuprofen 400mg PRN xin top PRN tizanidine 2mg TID continue to monitor
[2017-08-15] MEDS: THIAMINE HCL 100 MG TABLET (FP) PO SCH (21:35)
[2017-08-15] MEDS: TIZANIDINE HCL 2 MG TABLET PO PRN (21:36)
[2017-08-15] MEDS: METHYL SALICYLATE/MENTHOL OINT 30 GM TUBE TP SCH (21:37)
[2017-08-15] MEDS ORDERED: PT OWN MED DRAWER 7, Y5N ONE (22:18)
[2017-08-16] MEDS: NICOTINE 14 MG/24 HOURS TOPICAL PATCH TD SCH (10:22)
[2017-08-16] MEDS: PHENYTOIN NA EXTENDED 100 MG CAPSULE (FP) PO SCH ×2 (10:22→21:47)
[2017-08-16] MEDS: PRENATAL VITAMINS W/ FOLIC ACID TABLET (FP) PO SCH (10:22)
[2017-08-16] MEDS: METHYL SALICYLATE/MENTHOL OINT 30 GM TUBE TP SCH ×2 (10:24→22:00)
[2017-08-16] MEDS: TIZANIDINE HCL 2 MG TABLET PO PRN ×2 (10:26→21:47)
[2017-08-16] MEDS: THIAMINE HCL 100 MG TABLET (FP) PO SCH (21:47)
[2017-08-17] MEDS: METHYL SALICYLATE/MENTHOL OINT 30 GM TUBE TP SCH ×2 (10:13→21:43)
[2017-08-17] MEDS: PHENYTOIN NA EXTENDED 100 MG CAPSULE (FP) PO SCH ×2 (10:13→21:42)
[2017-08-17] MEDS: PRENATAL VITAMINS W/ FOLIC ACID TABLET (FP) PO SCH (10:13)
[2017-08-17] MEDS: NICOTINE 14 MG/24 HOURS TOPICAL PATCH TD SCH (10:14)
[2017-08-17] MEDS: TIZANIDINE HCL 2 MG TABLET PO PRN ×2 (10:15→21:43)
[2017-08-17] MEDS: THIAMINE HCL 100 MG TABLET (FP) PO SCH (21:42)
[2017-08-18] MEDS ORDERED: PT OWN MED DRAWER 7, Y5N ONE (09:18)
[2017-08-18] MEDS: PRENATAL VITAMINS W/ FOLIC ACID TABLET (FP) PO SCH (10:10)
[2017-08-18] MEDS: METHYL SALICYLATE/MENTHOL OINT 30 GM TUBE TP SCH ×2 (10:10→22:00)
[2017-08-18] MEDS: PHENYTOIN NA EXTENDED 100 MG CAPSULE (FP) PO SCH ×2 (10:10→21:40)
[2017-08-18] MEDS: NICOTINE 14 MG/24 HOURS TOPICAL PATCH TD SCH (10:10)
[2017-08-18] MEDS: TIZANIDINE HCL 2 MG TABLET PO PRN ×2 (10:12→21:40)
[2017-08-18] MEDS: THIAMINE HCL 100 MG TABLET (FP) PO SCH (21:40)
[2017-08-19] MEDS: PRENATAL VITAMINS W/ FOLIC ACID TABLET (FP) PO SCH (10:14)
[2017-08-19] MEDS: PHENYTOIN NA EXTENDED 100 MG CAPSULE (FP) PO SCH ×2 (10:14→21:41)
[2017-08-19] MEDS: NICOTINE 14 MG/24 HOURS TOPICAL PATCH TD SCH (10:14)
[2017-08-19] MEDS: TIZANIDINE HCL 2 MG TABLET PO PRN ×2 (10:15→21:41)
[2017-08-19] MEDS: METHYL SALICYLATE/MENTHOL OINT 30 GM TUBE TP SCH ×2 (10:28→21:42)
[2017-08-19] MEDS: THIAMINE HCL 100 MG TABLET (FP) PO SCH (21:41)
[2017-08-20] MEDS: PHENYTOIN NA EXTENDED 100 MG CAPSULE (FP) PO SCH ×2 (10:12→21:49)
[2017-08-20] MEDS: PRENATAL VITAMINS W/ FOLIC ACID TABLET (FP) PO SCH (10:12)
[2017-08-20] MEDS: TIZANIDINE HCL 2 MG TABLET PO PRN ×2 (10:13→21:49)
[2017-08-20] MEDS: NICOTINE 14 MG/24 HOURS TOPICAL PATCH TD SCH (10:14)
[2017-08-20] MEDS: METHYL SALICYLATE/MENTHOL OINT 30 GM TUBE TP SCH ×2 (10:14→23:04)
[2017-08-20] MEDS: THIAMINE HCL 100 MG TABLET (FP) PO SCH (21:49)
[2017-08-21] MEDS: PHENYTOIN NA EXTENDED 100 MG CAPSULE (FP) PO SCH ×2 (10:12→21:27)
[2017-08-21] MEDS: TIZANIDINE HCL 2 MG TABLET PO PRN ×2 (10:12→21:27)
[2017-08-21] MEDS: PRENATAL VITAMINS W/ FOLIC ACID TABLET (FP) PO SCH (10:12)
[2017-08-21] MEDS: NICOTINE 14 MG/24 HOURS TOPICAL PATCH TD SCH (10:13)
[2017-08-21] MEDS: METHYL SALICYLATE/MENTHOL OINT 30 GM TUBE TP SCH ×2 (10:13→22:46)
--- NOTE | 2017-08-21 13:31 | PN ---
S Progress Note Note: Patient presents with c/o itching to legs, feet and arms. Denies any enviromental allergies. Denies cough and SOB. PE: Pt ambulating as without difficulty. Alert and oriented x 3. In no distress. Skin warm and dry and intact. No redness or open areas noted. A/P: dermatitis. Will order Hydrocortisone cream to skin BID and monitor clinically.
[2017-08-21] MEDS: THIAMINE HCL 100 MG TABLET (FP) PO SCH (21:27)
[2017-08-21] MEDS: HYDROCORTISONE 0.5% TOPICAL CREAM 30 GM TUBE TP SCH (21:27)
[2017-08-22] MEDS: PRENATAL VITAMINS W/ FOLIC ACID TABLET (FP) PO SCH (09:34)
[2017-08-22] MEDS: PHENYTOIN NA EXTENDED 100 MG CAPSULE (FP) PO SCH ×2 (09:34→21:11)
[2017-08-22] MEDS: NICOTINE 14 MG/24 HOURS TOPICAL PATCH TD SCH (09:34)
[2017-08-22] MEDS: HYDROCORTISONE 0.5% TOPICAL CREAM 30 GM TUBE TP SCH ×2 (09:34→21:12)
[2017-08-22] MEDS: METHYL SALICYLATE/MENTHOL OINT 30 GM TUBE TP SCH ×2 (09:34→21:11)
[2017-08-22] MEDS: TIZANIDINE HCL 2 MG TABLET PO PRN ×2 (09:35→21:13)
[2017-08-22] MEDS: THIAMINE HCL 100 MG TABLET (FP) PO SCH (21:11)
[2017-08-23] MEDS: PRENATAL VITAMINS W/ FOLIC ACID TABLET (FP) PO SCH (10:31)
[2017-08-23] MEDS: NICOTINE 14 MG/24 HOURS TOPICAL PATCH TD SCH (10:32)
[2017-08-23] MEDS: HYDROCORTISONE 0.5% TOPICAL CREAM 30 GM TUBE TP SCH ×2 (10:32→21:40)
[2017-08-23] MEDS: METHYL SALICYLATE/MENTHOL OINT 30 GM TUBE TP SCH ×2 (10:33→21:40)
[2017-08-23] MEDS: PHENYTOIN NA EXTENDED 100 MG CAPSULE (FP) PO SCH ×2 (10:33→21:39)
[2017-08-23] MEDS: TIZANIDINE HCL 2 MG TABLET PO PRN ×2 (10:34→21:39)
--- NOTE | 2017-08-23 13:52 | PN ---
[facility] Progress Note Note: PATIENT C/O LOW BACK PAIN, LEVEL 5/10, DULL ACHE. Laboratory Tests 08/09/17 08/09/17 08/09/17 05:55 05:55 05:55 WBC 6.9 RBC 4.17 Hgb 13.0 Hct 38.9 MCV 93.1 MCH 31.1 MCHC 33.4 RDW 13.7 Plt Count 302 D MPV 10.0 D Sodium Potassium Chloride Carbon Dioxide Anion Gap BUN Creatinine Creat Clearance w eGFR Random Glucose Calcium Total Bilirubin AST ALT Alkaline Phosphatase Total Protein Albumin Phenytoin < 2.5 L RPR Titer Nonreactive 08/09/17 08/10/17 08/11/17 05:55 08:30 08:45 WBC RBC Hgb Hct MCV MCH MCHC RDW Plt Count MPV Sodium 140 141 Potassium 5.2 H 4.5 Chloride 104 105 Carbon Dioxide 28 32 Anion Gap 8 4 L BUN 19 H D 22 H Creatinine 1.6 H D 1.3 Creat Clearance w eGFR 42.35 53.82 Random Glucose 123 H D 62 L D Calcium 9.2 9.0 Total Bilirubin 0.5 D 0.4 AST 29 D 18 D ALT 41 D 33 Alkaline Phosphatase 88 79 Total Protein 7.5 7.0 Albumin 4.2 4.0 Phenytoin 5.3 L D RPR Titer 08/16/17 08/18/17 08:30 07:30 WBC RBC Hgb Hct MCV MCH MCHC RDW Plt Count MPV Sodium Potassium Chloride Carbon Dioxide Anion Gap BUN Creatinine Creat Clearance w eGFR Random Glucose Calcium Total Bilirubin AST ALT Alkaline Phosphatase Total Protein Albumin Phenytoin 7.2 L D 8.9 L D RPR Titer Vital Signs Temperature 97.9 F 08/23/17 07:08 Pulse Rate 72 08/23/17 07:08 Respiratory Rate 18 08/23/17 07:08 Blood Pressure 136/90 08/23/17 07:08 O2 Sat by Pulse Oximetry (%) OBJ: GENERAL: ALERT AND ORIENTED X 3. AMBULATES FREELY WITHOUT DEVICE. IN NAD. SKIN: WARM AND DRY EXT: NO EDEMA, FULL ROM. + L SPINE TENDERNESS. A/P: LBP LIDOCAINE PATCH 5% TOPICAL ORDERED CONTINUE TO MONITOR CLINICALLY
[2017-08-23] MEDS: THIAMINE HCL 100 MG TABLET (FP) PO SCH (21:39)
[2017-08-23] MEDS: LIDOCAINE PATCH REMOVAL MC SCH (21:41)
[2017-08-24] MEDS: PHENYTOIN NA EXTENDED 100 MG CAPSULE (FP) PO SCH ×2 (10:38→22:28)
[2017-08-24] MEDS: HYDROCORTISONE 0.5% TOPICAL CREAM 30 GM TUBE TP SCH ×2 (10:38→22:28)
[2017-08-24] MEDS: PRENATAL VITAMINS W/ FOLIC ACID TABLET (FP) PO SCH (10:38)
[2017-08-24] MEDS: METHYL SALICYLATE/MENTHOL OINT 30 GM TUBE TP SCH ×2 (10:38→22:28)
[2017-08-24] MEDS: LIDOCAINE 5% TOPICAL PATCH TP SCH (10:40)
[2017-08-24] MEDS: TIZANIDINE HCL 2 MG TABLET PO PRN ×2 (10:41→22:31)
[2017-08-24] MEDS: NICOTINE 14 MG/24 HOURS TOPICAL PATCH TD SCH (11:00)
[2017-08-24] MEDS ORDERED: PT OWN MED DRAWER 7, Y5N ONE (20:34)
[2017-08-24] MEDS: THIAMINE HCL 100 MG TABLET (FP) PO SCH (22:28)
[2017-08-24] MEDS: LIDOCAINE PATCH REMOVAL MC SCH (22:28)
[2017-08-25] MEDS: LIDOCAINE 5% TOPICAL PATCH TP SCH (10:02)
[2017-08-25] MEDS: PHENYTOIN NA EXTENDED 100 MG CAPSULE (FP) PO SCH ×2 (10:02→22:17)
[2017-08-25] MEDS: PRENATAL VITAMINS W/ FOLIC ACID TABLET (FP) PO SCH (10:02)
[2017-08-25] MEDS: NICOTINE 14 MG/24 HOURS TOPICAL PATCH TD SCH (10:05)
[2017-08-25] MEDS: METHYL SALICYLATE/MENTHOL OINT 30 GM TUBE TP SCH ×2 (10:16→22:17)
[2017-08-25] MEDS: HYDROCORTISONE 0.5% TOPICAL CREAM 30 GM TUBE TP SCH ×2 (10:16→23:50)
[2017-08-25] MEDS: THIAMINE HCL 100 MG TABLET (FP) PO SCH (22:18)
[2017-08-25] MEDS: TIZANIDINE HCL 2 MG TABLET PO PRN (22:19)
[2017-08-25] MEDS: LIDOCAINE PATCH REMOVAL MC SCH (23:50)
[2017-08-26] MEDS: NICOTINE 14 MG/24 HOURS TOPICAL PATCH TD SCH (09:47)
[2017-08-26] MEDS: LIDOCAINE 5% TOPICAL PATCH TP SCH (09:47)
[2017-08-26] MEDS: METHYL SALICYLATE/MENTHOL OINT 30 GM TUBE TP SCH ×2 (09:48→23:23)
[2017-08-26] MEDS: HYDROCORTISONE 0.5% TOPICAL CREAM 30 GM TUBE TP SCH ×2 (09:48→23:23)
[2017-08-26] MEDS: PRENATAL VITAMINS W/ FOLIC ACID TABLET (FP) PO SCH (09:48)
[2017-08-26] MEDS: PHENYTOIN NA EXTENDED 100 MG CAPSULE (FP) PO SCH ×2 (09:48→21:01)
[2017-08-26] MEDS: TIZANIDINE HCL 2 MG TABLET PO PRN ×2 (09:49→21:00)
[2017-08-26] MEDS: THIAMINE HCL 100 MG TABLET (FP) PO SCH (21:01)
[2017-08-26] MEDS: LIDOCAINE PATCH REMOVAL MC SCH (23:23)
[2017-08-27] MEDS ORDERED: PT OWN MED DRAWER 7, Y5N ONE ×2 (08:58→20:42)
[2017-08-27] MEDS: METHYL SALICYLATE/MENTHOL OINT 30 GM TUBE TP SCH ×2 (10:07→22:25)
[2017-08-27] MEDS: NICOTINE 14 MG/24 HOURS TOPICAL PATCH TD SCH (10:07)
[2017-08-27] MEDS: LIDOCAINE 5% TOPICAL PATCH TP SCH (10:07)
[2017-08-27] MEDS: HYDROCORTISONE 0.5% TOPICAL CREAM 30 GM TUBE TP SCH ×2 (10:07→22:25)
[2017-08-27] MEDS: PRENATAL VITAMINS W/ FOLIC ACID TABLET (FP) PO SCH (10:07)
[2017-08-27] MEDS: PHENYTOIN NA EXTENDED 100 MG CAPSULE (FP) PO SCH ×2 (10:07→22:25)
[2017-08-27] MEDS: TIZANIDINE HCL 2 MG TABLET PO PRN ×2 (10:08→22:27)
[2017-08-27] MEDS: THIAMINE HCL 100 MG TABLET (FP) PO SCH (22:25)
[2017-08-27] MEDS: LIDOCAINE PATCH REMOVAL MC SCH (23:03)
[2017-08-28] MEDS ORDERED: PT OWN MED DRAWER 7, Y5N ONE (09:03)
[2017-08-28] MEDS: HYDROCORTISONE 0.5% TOPICAL CREAM 30 GM TUBE TP SCH ×2 (11:01→22:30)
[2017-08-28] MEDS: NICOTINE 14 MG/24 HOURS TOPICAL PATCH TD SCH (11:01)
[2017-08-28] MEDS: PHENYTOIN NA EXTENDED 100 MG CAPSULE (FP) PO SCH ×2 (11:01→21:52)
[2017-08-28] MEDS: METHYL SALICYLATE/MENTHOL OINT 30 GM TUBE TP SCH ×2 (11:01→22:29)
[2017-08-28] MEDS: LIDOCAINE 5% TOPICAL PATCH TP SCH (11:01)
[2017-08-28] MEDS: PRENATAL VITAMINS W/ FOLIC ACID TABLET (FP) PO SCH (11:01)
[2017-08-28] MEDS: IBUPROFEN 400 MG TABLET (FP) PO PRN (11:02)
[2017-08-28] MEDS: THIAMINE HCL 100 MG TABLET (FP) PO SCH (21:52)
[2017-08-28] MEDS: TIZANIDINE HCL 2 MG TABLET PO PRN (21:52)
[2017-08-28] MEDS: LIDOCAINE PATCH REMOVAL MC SCH (21:53)
[2017-08-29] MEDS: METHYL SALICYLATE/MENTHOL OINT 30 GM TUBE TP SCH ×2 (10:33→22:30)
[2017-08-29] MEDS: HYDROCORTISONE 0.5% TOPICAL CREAM 30 GM TUBE TP SCH ×2 (10:33→22:30)
[2017-08-29] MEDS: PRENATAL VITAMINS W/ FOLIC ACID TABLET (FP) PO SCH (10:33)
[2017-08-29] MEDS: PHENYTOIN NA EXTENDED 100 MG CAPSULE (FP) PO SCH ×2 (10:33→21:44)
[2017-08-29] MEDS: LIDOCAINE 5% TOPICAL PATCH TP SCH (10:33)
[2017-08-29] MEDS: NICOTINE 14 MG/24 HOURS TOPICAL PATCH TD SCH (10:34)
[2017-08-29] MEDS: TIZANIDINE HCL 2 MG TABLET PO PRN ×2 (10:35→21:44)
[2017-08-29] MEDS: THIAMINE HCL 100 MG TABLET (FP) PO SCH (21:44)
[2017-08-29] MEDS: LIDOCAINE PATCH REMOVAL MC SCH (22:30)
[2017-08-30] MEDS: IBUPROFEN 400 MG TABLET (FP) PO PRN ×2 (08:36→21:55)
[2017-08-30] MEDS: PHENYTOIN NA EXTENDED 100 MG CAPSULE (FP) PO SCH ×2 (11:00→21:55)
[2017-08-30] MEDS: PRENATAL VITAMINS W/ FOLIC ACID TABLET (FP) PO SCH (11:00)
[2017-08-30] MEDS: METHYL SALICYLATE/MENTHOL OINT 30 GM TUBE TP SCH ×2 (11:00→22:13)
[2017-08-30] MEDS: HYDROCORTISONE 0.5% TOPICAL CREAM 30 GM TUBE TP SCH ×2 (11:00→22:13)
[2017-08-30] MEDS: LIDOCAINE 5% TOPICAL PATCH TP SCH (11:00)
[2017-08-30] MEDS: NICOTINE 14 MG/24 HOURS TOPICAL PATCH TD SCH (11:00)
[2017-08-30] MEDS: TIZANIDINE HCL 2 MG TABLET PO PRN ×2 (12:44→21:55)
--- NOTE | 2017-08-30 14:15 | PN ---
[facility] Progress Note Note: PATIENT HAS HISTORY OF INGUINAL HERNIA TO LEFT GROIN. STATES HERNIA TENDER AT TIMES BUT PT DENIES SEVERE PAIN. EXAM SHOW SMALL NON-TENDER LEFT GROIN HERNIA. NO REDNESS NOTED. PATIENT ADVISED TO NOTIFY MD/SHELLFISH CHECKER/RN IF PAIN OCCURS. RECOMMENDED TO FOLLOW UP WITH PCP FOR SURGICAL CONSULT UPON DISCHARGE. CONTINUE TO MONITOR CLINICALLY.
[2017-08-30] MEDS: THIAMINE HCL 100 MG TABLET (FP) PO SCH (21:55)
[2017-08-30] MEDS: LIDOCAINE PATCH REMOVAL MC SCH (21:56)
[2017-08-31] MEDS: LIDOCAINE 5% TOPICAL PATCH TP SCH (10:22)
[2017-08-31] MEDS: TIZANIDINE HCL 2 MG TABLET PO PRN (10:22)
[2017-08-31] MEDS: PHENYTOIN NA EXTENDED 100 MG CAPSULE (FP) PO SCH ×2 (10:22→21:48)
[2017-08-31] MEDS: PRENATAL VITAMINS W/ FOLIC ACID TABLET (FP) PO SCH (10:22)
[2017-08-31] MEDS: NICOTINE 14 MG/24 HOURS TOPICAL PATCH TD SCH (10:23)
[2017-08-31] MEDS: HYDROCORTISONE 0.5% TOPICAL CREAM 30 GM TUBE TP SCH ×2 (10:23→21:48)
[2017-08-31] MEDS: METHYL SALICYLATE/MENTHOL OINT 30 GM TUBE TP SCH ×2 (10:35→21:48)
--- NOTE | 2017-08-31 10:56 | PN ---
Psychiatric Progress Note Vital Signs: Vital Signs Period Temp Pulse Resp BP Sys/Zhang Pulse Ox Last 24 Hr 97.3 F 77 18-18 122/59 Date of Session: 08/31/17 Chief Complaint:: Insomnia HPI: Patient addressing Alcohol, Cocaine comorbid with Nicotine and Substance- Induced Mood Disorder ROS: Asthma, HTN, GERD, Seizure Current Medications: Active Medications Generic Name Dose Route Start Last Admin Trade Name Freq PRN Reason Stop Dose Admin Acetaminophen 650 mg 08/08/17 12:55 Tylenol - PO Q4H PRN FEVER Al Hydroxide/Mg Hydroxide 30 ml 08/08/17 12:55 Mylanta Oral Suspension - PO Q6H PRN DYSPEPSIA Albuterol Sulfate 2 puff 08/08/17 12:55 Ventolin Hfa Inhaler - IH Q4H PRN SHORT OF BREATH/WHEEZING Eucalyptus/Menthol/Phenol/Sorbitol 1 each 08/08/17 12:55 Cepastat Lozenge - MM Q4H PRN SORE THROAT Guaifenesin 10 ml 08/08/17 12:55 Robitussin Dm - PO Q6H PRN COUGH Hydrocortisone 1 applic 08/21/17 22:00 08/31/17 10:23 Hytone 0.5% Cream - TP Not Given BID MARKEL Ibuprofen 400 mg 08/08/17 12:55 08/30/17 21:55 Motrin - PO 400 mg Q6H PRN Administration Pain Level 4-6 Lidocaine 1 patch 08/24/17 10:00 08/31/17 10:22 Lidoderm Patch - TP 1 patch DAILY MARKEL Administration Loperamide HCl 4 mg 08/08/17 12:55 Imodium - PO Q6H PRN DIARRHEA Magnesium Citrate 300 ml 08/08/17 12:55 Citroma - PO Q48H PRN CONSTIPATION Magnesium Hydroxide 30 ml 08/08/17 12:55 08/09/17 10:39 Milk Of Magnesia - PO 30 ml DAILY PRN Administration CONSTIPATION Melatonin 5 mg 08/08/17 22:00 08/11/17 21:30 Melatonin PO 5 mg HS PRN Administration INSOMNIA Methyl Salicylate 1 applic 08/15/17 22:00 08/31/17 10:35 Ronen-Craft - TP Not Given BID MARKEL Miscellaneous 1 each 08/23/17 22:00 08/30/17 21:56 Lidoderm Patch Removal MC Not Given DAILY@2200 [facility] Nicotine 14 mg 08/09/17 10:00 08/31/17 10:23 Nicoderm Patch - TD Not Given DAILY [facility] Nicotine Polacrilex 2 mg 08/08/17 12:55 Nicorette Gum - BUC Q2H PRN NICOTINE REPLACEMENT RX Phenytoin Sodium 100 mg 08/09/17 22:00 08/31/17 10:22 Dilantin - PO 100 mg BID MARKEL Administration Multivit/Folic Acid/Iron 1 tab 08/09/17 10:00 08/31/17 10:22 Vitamins (Sjr) - PO 1 tab DAILY MARKEL Administration Pseudoephedrine/Triprolidine 1 combo 08/08/17 12:55 Actifed - PO TID PRN NASAL CONGESTION Quetiapine Fumarate 100 mg 08/31/17 22:00 Seroquel - PO HS [facility] Thiamine HCl 100 mg 08/08/17 22:00 08/30/17 21:55 Vitamin B1 - PO 100 mg HS MARKEL Administration Tizanidine HCl 2 mg 08/15/17 16:51 08/31/17 10:22 Tizanidine Hcl PO 2 mg Q8H PRN Administration MUSCLE SPASMS Medication(s) Change(s): Start Seroquel 100 mg po HS Current Side Effect: No Lab tests ordered: Yes Lab tests reviewed: Yes Provider note:: Patient reports experiencing difficulty to sleep. He said that he wakes up in the middle of the nights after having nightmares. Patient has history of PTSD and has stopped taking medications for a long time. He mentions great benefit fro Seroquel of all the medications he was on. Will start Seroquel 100 mg po HS Total face to face time:: 15 Mental Status Exam - Mental Status Exam Alert and Oriented to: Time, Place, Person Cognitive Function: Fair Mood: Hopeful, Euthymic Affect: Appropriate Patient Behavior: Cooperative Speech Pattern: Clear Voice Loudness: Normal Thought Process: Intact, Goal Oriented Thought Disorder: Not Present Hallucinations: Denies Suicidal Ideation: Denies Homicidal Ideation: Denies Insight/Judgement: Fair Sleep: Poorly Appetite: Good Muscle strength/Tone: Normal Gait/Station: Normal Psychiatric Treatment Plan - Problem List (1) Alcohol dependence Current Visit: Yes (2) Cocaine dependence Current Visit: Yes (3) Nicotine dependence Current Visit: Yes Qualifiers: Nicotine product type: cigarettes Substance use status: in withdrawal Qualified Code(s): F17.213 - Nicotine dependence, cigarettes, with withdrawal (4) Substance induced mood disorder Current Visit: Yes (5) Acid reflux Current Visit: No Qualifiers: Esophagitis presence: esophagitis presence not specified Qualified Code(s) : K21.9 - Gastro-esophageal reflux disease without esophagitis (6) Asthma Current Visit: No Qualifiers: Asthma severity: mild Asthma persistence: intermittent Asthma complication type: uncomplicated Qualified Code(s): J45.20 - Mild intermittent asthma, uncomplicated (7) History of hypertension Current Visit: No (8) Seizure disorder Current Visit: No Initial treatment plan: 1) Start Seroquel 100 mg po HS. 2) Monitor progress
[2017-08-31] MEDS: THIAMINE HCL 100 MG TABLET (FP) PO SCH (21:48)
[2017-08-31] MEDS: LIDOCAINE PATCH REMOVAL MC SCH (21:48)
[2017-08-31] MEDS: QUEtiapine FUMARATE 100 MG TABLET (FP) PO SCH (21:48)
[2017-08-31] MEDS: IBUPROFEN 400 MG TABLET (FP) PO PRN (21:49)
[2017-09-01] MEDS: METHYL SALICYLATE/MENTHOL OINT 30 GM TUBE TP SCH ×2 (10:26→22:38)
[2017-09-01] MEDS: PHENYTOIN NA EXTENDED 100 MG CAPSULE (FP) PO SCH ×2 (10:26→22:38)
[2017-09-01] MEDS: PRENATAL VITAMINS W/ FOLIC ACID TABLET (FP) PO SCH (10:26)
[2017-09-01] MEDS: HYDROCORTISONE 0.5% TOPICAL CREAM 30 GM TUBE TP SCH ×2 (10:26→22:38)
[2017-09-01] MEDS: LIDOCAINE 5% TOPICAL PATCH TP SCH (10:27)
[2017-09-01] MEDS: TIZANIDINE HCL 2 MG TABLET PO PRN ×2 (10:28→22:40)
[2017-09-01] MEDS: NICOTINE 14 MG/24 HOURS TOPICAL PATCH TD SCH (10:33)
[2017-09-01] MEDS: IBUPROFEN 400 MG TABLET (FP) PO PRN (19:25)
[2017-09-01] MEDS: LIDOCAINE PATCH REMOVAL MC SCH (22:38)
[2017-09-01] MEDS: THIAMINE HCL 100 MG TABLET (FP) PO SCH (22:38)
[2017-09-01] MEDS: QUEtiapine FUMARATE 100 MG TABLET (FP) PO SCH (22:38)
[2017-09-02] MEDS: PHENYTOIN NA EXTENDED 100 MG CAPSULE (FP) PO SCH ×2 (10:32→21:54)
[2017-09-02] MEDS: TIZANIDINE HCL 2 MG TABLET PO PRN ×2 (10:32→21:54)
[2017-09-02] MEDS: PRENATAL VITAMINS W/ FOLIC ACID TABLET (FP) PO SCH (10:32)
[2017-09-02] MEDS: LIDOCAINE 5% TOPICAL PATCH TP SCH (10:32)
[2017-09-02] MEDS: HYDROCORTISONE 0.5% TOPICAL CREAM 30 GM TUBE TP SCH ×2 (10:33→21:55)
[2017-09-02] MEDS: NICOTINE 14 MG/24 HOURS TOPICAL PATCH TD SCH (10:33)
[2017-09-02] MEDS: METHYL SALICYLATE/MENTHOL OINT 30 GM TUBE TP SCH ×2 (10:43→22:00)
[2017-09-02] MEDS: QUEtiapine FUMARATE 100 MG TABLET (FP) PO SCH (21:54)
[2017-09-02] MEDS: THIAMINE HCL 100 MG TABLET (FP) PO SCH (21:54)
[2017-09-02] MEDS: LIDOCAINE PATCH REMOVAL MC SCH (21:55)
[2017-09-03] MEDS: TIZANIDINE HCL 2 MG TABLET PO PRN ×2 (10:14→21:48)
[2017-09-03] MEDS: PRENATAL VITAMINS W/ FOLIC ACID TABLET (FP) PO SCH (10:14)
[2017-09-03] MEDS: PHENYTOIN NA EXTENDED 100 MG CAPSULE (FP) PO SCH ×2 (10:14→21:48)
[2017-09-03] MEDS: LIDOCAINE 5% TOPICAL PATCH TP SCH (10:14)
[2017-09-03] MEDS: HYDROCORTISONE 0.5% TOPICAL CREAM 30 GM TUBE TP SCH ×2 (10:15→21:48)
[2017-09-03] MEDS: NICOTINE 14 MG/24 HOURS TOPICAL PATCH TD SCH (10:15)
[2017-09-03] MEDS: METHYL SALICYLATE/MENTHOL OINT 30 GM TUBE TP SCH ×2 (10:15→22:00)
[2017-09-03] MEDS: THIAMINE HCL 100 MG TABLET (FP) PO SCH (21:48)
[2017-09-03] MEDS: LIDOCAINE PATCH REMOVAL MC SCH (21:48)
[2017-09-03] MEDS: QUEtiapine FUMARATE 100 MG TABLET (FP) PO SCH (21:48)
--- NOTE | 2017-09-04 07:17 | PN ---
Psychiatric Progress Note Vital Signs: Vital Signs Period Temp Pulse Resp BP Sys/Zhang Pulse Ox Last 24 Hr 97.4 F 71 18-18 140/67 Date of Session: 09/04/17 Chief Complaint:: Discharge Note HPI: Patient addressingAlcohol and Cocaine Dependence comorbid with Nicotine Dependence and Substance-Induced Mood Disorder ROS: GERD, Asthma, HTN, Seizure Disorder Current Medications: Active Medications Generic Name Dose Route Start Last Admin Trade Name Freq PRN Reason Stop Dose Admin Acetaminophen 650 mg 08/08/17 12:55 Tylenol - PO Q4H PRN FEVER Al Hydroxide/Mg Hydroxide 30 ml 08/08/17 12:55 Mylanta Oral Suspension - PO Q6H PRN DYSPEPSIA Albuterol Sulfate 2 puff 08/08/17 12:55 Ventolin Hfa Inhaler - IH Q4H PRN SHORT OF BREATH/WHEEZING Eucalyptus/Menthol/Phenol/Sorbitol 1 each 08/08/17 12:55 Cepastat Lozenge - MM Q4H PRN SORE THROAT Guaifenesin 10 ml 08/08/17 12:55 Robitussin Dm - PO Q6H PRN COUGH Hydrocortisone 1 applic 08/21/17 22:00 09/03/17 21:48 Hytone 0.5% Cream - TP 1 applic BID MARKEL Administration Ibuprofen 400 mg 08/08/17 12:55 09/01/17 19:25 Motrin - PO 400 mg Q6H PRN Administration Pain Level 4-6 Lidocaine 1 patch 08/24/17 10:00 09/03/17 10:14 Lidoderm Patch - TP 1 patch DAILY MARKEL Administration Loperamide HCl 4 mg 08/08/17 12:55 Imodium - PO Q6H PRN DIARRHEA Magnesium Citrate 300 ml 08/08/17 12:55 Citroma - PO Q48H PRN CONSTIPATION Magnesium Hydroxide 30 ml 08/08/17 12:55 08/09/17 10:39 Milk Of Magnesia - PO 30 ml DAILY PRN Administration CONSTIPATION Melatonin 5 mg 08/08/17 22:00 08/11/17 21:30 Melatonin PO 5 mg HS PRN Administration INSOMNIA Methyl Salicylate 1 applic 08/15/17 22:00 09/03/17 22:00 Ronen-Craft - TP Not Given BID MARKEL Miscellaneous 1 each 08/23/17 22:00 09/03/17 21:48 Lidoderm Patch Removal MC 1 each DAILY@2200 MARKEL Administration Nicotine 14 mg 08/09/17 10:00 09/03/17 10:15 Nicoderm Patch - TD Not Given DAILY MARKEL Nicotine Polacrilex 2 mg 08/08/17 12:55 Nicorette Gum - BUC Q2H PRN NICOTINE REPLACEMENT RX Phenytoin Sodium 100 mg 08/09/17 22:00 09/03/17 21:48 Dilantin - PO 100 mg BID MARKEL Administration Multivit/Folic Acid/Iron 1 tab 08/09/17 10:00 09/03/17 10:14 Vitamins (Sjr) - PO 1 tab DAILY MARKEL Administration Pseudoephedrine/Triprolidine 1 combo 08/08/17 12:55 Actifed - PO TID PRN NASAL CONGESTION Quetiapine Fumarate 100 mg 08/31/17 22:00 09/03/17 21:48 Seroquel - PO 100 mg HS MARKEL Administration Thiamine HCl 100 mg 08/08/17 22:00 09/03/17 21:48 Vitamin B1 - PO 100 mg HS MARKEL Administration Tizanidine HCl 2 mg 08/15/17 16:51 09/03/17 21:48 Tizanidine Hcl PO 2 mg Q8H PRN Administration MUSCLE SPASMS Current Side Effect: No Lab tests ordered: Yes Lab tests reviewed: Yes Provider note:: Patient will complete this program on 09/05/17. He has met his treatment goals and will continue to address his issues in outpatient treatment at [facility]. 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 He responded well to Seroquel 100 mg po HS for insomnia. Script for 30 days supply of medication will be electronically transmitted to [facility]. He is stable for discharge on 09/05/17 Total face to face time:: 35 Mental Status Exam - Mental Status Exam Alert and Oriented to: Time, Place, Person Cognitive Function: Fair Patient Appearance: Well Groomed Mood: Hopeful, Euthymic Affect: Appropriate Patient Behavior: Cooperative Speech Pattern: Clear Voice Loudness: Normal Thought Process: Intact, Goal Oriented Thought Disorder: Not Present Hallucinations: Denies Suicidal Ideation: Denies Insight/Judgement: Fair Sleep: Fair Appetite: Good Muscle strength/Tone: Normal Gait/Station: Normal Psychiatric Treatment Plan - Problem List (1) Alcohol dependence Current Visit: Yes (2) Cocaine dependence Current Visit: Yes (3) Nicotine dependence Current Visit: Yes Qualifiers: Nicotine product type: cigarettes Substance use status: in withdrawal Qualified Code(s): F17.213 - Nicotine dependence, cigarettes, with withdrawal (4) Substance induced mood disorder Current Visit: Yes (5) Acid reflux Current Visit: No Qualifiers: Esophagitis presence: esophagitis presence not specified Qualified Code(s) : K21.9 - Gastro-esophageal reflux disease without esophagitis (6) Asthma Current Visit: No Qualifiers: Asthma severity: mild Asthma persistence: intermittent Asthma complication type: uncomplicated Qualified Code(s): J45.20 - Mild intermittent asthma, uncomplicated (7) History of hypertension Current Visit: No (8) Seizure disorder Current Visit: No Initial treatment plan: Patient will be discharged tomorrow and referred to [facility] for outpatient treatment
[2017-09-04] MEDS: PHENYTOIN NA EXTENDED 100 MG CAPSULE (FP) PO SCH ×2 (11:08→21:57)
[2017-09-04] MEDS: PRENATAL VITAMINS W/ FOLIC ACID TABLET (FP) PO SCH (11:08)
[2017-09-04] MEDS: METHYL SALICYLATE/MENTHOL OINT 30 GM TUBE TP SCH ×2 (11:09→21:58)
[2017-09-04] MEDS: TIZANIDINE HCL 2 MG TABLET PO PRN ×2 (11:10→21:57)
[2017-09-04] MEDS: HYDROCORTISONE 0.5% TOPICAL CREAM 30 GM TUBE TP SCH ×2 (11:11→21:58)
[2017-09-04] MEDS: NICOTINE 14 MG/24 HOURS TOPICAL PATCH TD SCH (11:17)
[2017-09-04] MEDS: LIDOCAINE 5% TOPICAL PATCH TP SCH (11:17)
[2017-09-04] MEDS: THIAMINE HCL 100 MG TABLET (FP) PO SCH (21:57)
[2017-09-04] MEDS: QUEtiapine FUMARATE 100 MG TABLET (FP) PO SCH (21:57)
[2017-09-04] MEDS: LIDOCAINE PATCH REMOVAL MC SCH (21:58)
[2017-09-05 06:58] VITALS: BP 144/70; PULSE 75; TEMP 97.5
== END 2017-09-05 07:03 | disposition home or self-care (01) | DRG 895 ==
LOC: YASAS 08:46 → Y3W 14:14
PROVIDERS: ADMIT Psychiatry & Neurology Psychiatry; ATTEND Psychiatry & Neurology Psychiatry
PROC: HZ42ZZZ Group Counseling for Substance Abuse Treatment, Cognitive-Behavioral (ICD-10-PCS; principal; 2017-08-08)
DX: F10.20 Alcohol dependence, uncomplicated (principal); F14.20 Cocaine dependence, uncomplicated; F17.213 Nicotine dependence, cigarettes, with withdrawal; F19.24 Other psychoactive substance dependence with psychoactive substance-induced mood disorder; K21.9 Gastro-esophageal reflux disease without esophagitis; I10 Essential (primary) hypertension; J45.20 Mild intermittent asthma, uncomplicated; G40.909 Epilepsy, unspecified, not intractable, without status epilepticus; M54.5 Low back pain; L30.9 Dermatitis, unspecified; M54.2 Cervicalgia; Z88.0 Allergy status to penicillin
CPT/HCPCS: 36415; 80053; 80185; 85027; 86593